=== PATIENT | male | born 1970 | race Hispanic/Latino ===

== ENCOUNTER 2017-12-23 17:23 | Inpatient (IN) | payer OTHER ==
[~2017-12-23] VITALS: Ht 157.5 cm; Wt 75.0 kg
--- NOTE | 2017-12-23 17:25 | NUR ---
PT IMMEDIATELY TO TX ROOM VIA WC. REPORTS HE GOT DIZZY AND FELL WHILE OPERATING A FORKLIFT, FELL OFF THE FORKLIFT ONTO THE GROUND. PT STATES HE HIT HIS HEAD AND THE FORKLIFT, STILL IN MOTION, RAN OVER HIS LEFT UPPER LEG ABOUT MID THIGH. PT DENIES LOC, N/V. PT AWAKE, ALERT AND CONVERSING, ABLE TO ANSWER QUESTIONS. PERRHOLLY. PT STATES HE IS SUPPOSED TO BE TAKING HIS DIABETIC AND HYPTERTENSIVE MEDS AND HAS NOT HAD THEM IN OVER 3 MONTHS.
--- NOTE | 2017-12-23 17:46 | NUR ---
PATIENT REPORTS BEING
--- NOTE | 2017-12-23 18:00 | NUR ---
PATIENT HAS ABRAION TO LEFT UPPER THIGH, REPORTS BEING RUN OVER BY [email or web address] PRIOR TO ARRIVAL. RATES PAIN 9/10, DENIES ANY CHEST OR ABD PAIN. LUNG SOUNDS CLEAR, ACTIVE BOWEL SOUND. PATIENT IS ALERT AND ORIENTED X4. DAYANA PIZANO INFORMED ABOUT PATIENT REQUEST TO PAIN MEDICATIONS. PATIENT TO CT.
[2017-12-23 18:09] LABS: HEMATOCRIT 47.4 % (39.0-50.0); HEMOGLOBIN 16.8 g/dl (14.0-18.0); IMMATURE GRANULOCYTES 1.2 % (0.0-5.0); MEAN CELL VOLUME 82.9 fL CALC (80.0-100.0); MEAN CORPUSCULAR HGB 29.4 pG CALC (26.0-32.0); MEAN CORPUSCULAR HGB CONC 35.4 g/L CALC (32.0-36.0); NEUT# 12.09 thou/uL (1.82-7.42); RED BLOOD COUNT 5.72 mill/uL (4.70-6.10); RED CELL DISTRI WIDTH 12.2 % (11.5-15.5)
[2017-12-23 18:10] LABS: ALKALINE PHOSPHATASE 135 u/l (38-126); BILIRUBIN, TOTAL 0.6 mg/dL (0.0-1.4); BUN 23 mg/dL (9-20); BUN/CREATININE RATIO 8 (12-20 (CALC)); CARBON DIOXIDE 19 mmol/l (22-30); CPK 252 u/l (52-200); CREATININE 2.9 mg/dL (0.7-1.3); GFR 23 ML/MIN (>=60 (CALC)); GFR FOR AFR.AMER. 28 ML/MIN (>=60 (CALC)); LIPASE 209 u/l (23-300); POTASSIUM 4.6 mmol/l (3.5-5.1); SGOT/AST 28 u/l (17-59); SGPT/ALT 40 u/l (21-72); SODIUM 128 mmol/l (137-146); TOTAL PROTEIN 8.5 g/dL (6.3-8.2)
[2017-12-23 18:11] LABS: ANION GAP 29 (6-22 (CALC)); CHLORIDE 85 mmol/l (95-108)
[2017-12-23 18:32] LABS: MYOGLOBIN 715 ng/mL (0 - 121)
--- NOTE | 2017-12-23 18:41 | NUR ---
BEDSIDE REPORT GIVEN TO JACQUELINE MATTHEWS. PATIENT IN STABLE CONDITION. CARE RELINQUISHED.
--- NOTE | 2017-12-23 18:45 | NUR ---
RECEIVED REPORT FROM JACQUELINE RAMESH AND WE BOTH ASKED IF INSULIN ORDER WAS TO BE PLACED SINCE PT'S GLUCOSE IS OVER 600.
--- NOTE | 2017-12-23 19:19 | NUR ---
REPEAT ACCUCHECK 445
--- NOTE | 2017-12-23 20:29 | NUR ---
RECHECKED ACCUCHECK 406 INSULIN DRIP STARTED.
--- NOTE | 2017-12-23 21:07 | NUR ---
REPORT GIVEN TO JACQUELINE WINTERS ICU..SPOKE WITH DR WESTBROOK ABOUT FRACTURE AND PAIN MEDICATION IF NEEDED, ORDERS PLACED. LAB IN TO DRAW REPEAT LACTIC ACID.
--- NOTE | 2017-12-23 21:17 | NUR ---
Admission Note Report Given to: JACQUELINE WINTERS Transported by: Wheelchair X Stretcher Transported with: X Nurse Transporter X Patent IV X O2 X Pump Erector
--- NOTE | 2017-12-23 21:30 | NUR ---
PT. ARRIVES VIA STRETCHER FROM ER. KNEE IMMOBILIZER IN PLACE TO LT. LEG. PT. MOVED HIMSELF FROM ER STRETCHER OVER TO ICU BED WITH ONL YTHE ASSISTANCE OF HELPING MOVE EFFECTED LEG. GOOD DISTIL CAP REFILL AND PULSES NOTED TO LT. FOOT. DORSALIS PEDAL PULSE MARKED WITH AN X AT THIS TIME. PT. C/O 7/10 PAIN ON ARRIVAL TO ICU. INSULIN DRIP INFUSING AT 4 UNITS/HR. IV FLUIDS ARE 500 BAG AT KVO. INCREASED TO 125 CC/HR PER FLUID ORDERS. WILL USE FLUID ORDERS BACKUP FOR INSULIN DRIP. WADNER RT AT BEDSIDE TO INTERPRET AT THIS TIME PT. IS KYRGYZ SPEAKING ONLY. PT. STATES HIS ONLY LOCATION OF PAIN IS THE LT. KNEE/THIGH AREA. ABRASION NOTED TO DISTIL LT. THIGH LATERALLY. NO SWELLING APPRECIATED. LT. CALF APPEARS NORMAL IN SIZE IN COMPARISON TO THE RT. PT. DENIES CP, SOB, DIZZINESS OR LIGHTHEADEDNESS. SINUS RHYTHM IN THE 90'S ON ARRIVAL. PT. DOES COMPLAIN OF SOME MILD LT. CALF PAIN ON PALPATION. WILL CONTINUE TO CLOSELY ASSESS FOR SWELLING. AWAKE, ALERT, ORIENTED X 3. BONILLA. W[place]. NO NEURO DEFICITS NOTED. LUNGS CTA. SKIN WARM AN DRY. AFEBRILE. RESPS EVEN AND UNLABORED. PROVIDED WITH URINAL AND CALL MACKENZIE AND PROVIDED WITH INSTRUCTIONS ON USE FOR EACH. PT. HAS NO QUESTIONS OR CONCERNS AT THIS TIME. WILL MEDICATE FOR PAIN ORDERED.-
[2017-12-23 22:00] VITALS: BP 133/85
--- NOTE | 2017-12-23 22:03 | NUR ---
ACCUCHECK NOW 349. DRIP CONTINUES AT 4 UNITS/HR.
[2017-12-23 22:15] VITALS: BP 137/79
[2017-12-23 22:30] VITALS: BP 107/69
[2017-12-23 22:45] VITALS: BP 159/99
[2017-12-23 23:00] VITALS: BP 157/95
--- NOTE | 2017-12-23 23:02 | NUR ---
PT. AND FAMILY UPDATED ON PT. STATUS. ALL QUESTIONS ANSWERED AT THIS TIME. IF FLUIDS AND INSULIN INFUSING ORDERED. ACCUCHECK NOW 287. DRIP DECREASED TO 3 UNITS/HR. PT. STATES HIS PAIN HAS IMPROVED AT THIS TIME. RATES 5/10. WILL CONTINUE TO MONITOR.
[2017-12-24] VITALS (21 sets, daily range): BP systolic 90–146; BP diastolic 50–98
--- NOTE | 2017-12-24 00:05 | NUR ---
ACCUCHECK NOW 327. INSULIN DRIP INCREASED BACK TO 4 UNITS/HR.
[2017-12-24 00:59] LABS: CREATININE 1.7 mg/dL (0.7-1.3); POTASSIUM 3.5 mmol/l (3.5-5.1)
--- NOTE | 2017-12-24 01:05 | NUR ---
ACCUCHECK NOW 240. INSULIN DRIP DECREASED TO 3 UNITS/HR.
--- NOTE | 2017-12-24 02:24 | NUR ---
ACCUCHECK NOW 228. INSULIN DRIP CONTINUES AT 3 UNITS/HR. IV FLUIDS CONTINUE TO INFUSE AT 125 CC/HR. NO DISTRESS.
--- NOTE | 2017-12-24 03:05 | NUR ---
ACCUCHECK NOW 211. NO CHANGES TO INSULIN DRIP AT THIS TIME. REMAINS AT 3 UNITS/HR PT. REMAINS EASILY AROUSABLE. NO DISTRESS. CALL LIGHT REMAINS WITHIN REACH. WILL CONTINUE TO CLOSELY MONITOR.
--- NOTE | 2017-12-24 04:03 | NUR ---
PT. ASSISTED TO BSC. BM AT THIS TIME. PT. RATES HIS PAIN A 1/10 AT THIS TIME. ACCUCHECK NOW 138. INSULIN DRIP DECREASED TO 1 UNIT/HR. WILL CONTINUE TO CLOSELY MONITOR.
--- NOTE | 2017-12-24 05:05 | NUR ---
ACCUCHEBENEZER NOW 151. NO CHANGES TO INSULIN DRIP.
--- NOTE | 2017-12-24 06:23 | NUR ---
LAB AT BEDSIDE AT THIS TIME TO DRAW PT. PT. REPORTS NO PAIN AT THIS TIME. CALL LIGHT REMAINS WITHIN REACH. SIG OTHER REMAINS AT BEDSIDE AT THIS TIME. NO DISTRESS. DISTIL PULSES REMAIN INTACT.
[2017-12-24 06:29] LABS: IMMATURE GRANULOCYTES 0.8 % (0.0-5.0); MEAN CELL VOLUME 84.1 fL CALC (80.0-100.0); MEAN CORPUSCULAR HGB 29.7 pG CALC (26.0-32.0); MEAN CORPUSCULAR HGB CONC 35.3 g/L CALC (32.0-36.0); NEUT# 7.41 thou/uL (1.82-7.42); RED BLOOD COUNT 4.78 mill/uL (4.70-6.10); RED CELL DISTRI WIDTH 12.3 % (11.5-15.5)
[2017-12-24 06:30] LABS: HEMATOCRIT 40.2 % (39.0-50.0); HEMOGLOBIN 14.2 g/dl (14.0-18.0)
[2017-12-24 06:45] LABS: ALKALINE PHOSPHATASE 82 u/l (38-126); ANION GAP 12 (6-22 (CALC)); BILIRUBIN, TOTAL 0.5 mg/dL (0.0-1.4); BUN 21 mg/dL (9-20); BUN/CREATININE RATIO 16 (12-20 (CALC)); CARBON DIOXIDE 28 mmol/l (22-30); CHLORIDE 102 mmol/l (95-108); CREATININE 1.3 mg/dL (0.7-1.3); GFR 59 ML/MIN (>=60 (CALC)); GFR FOR AFR.AMER. > 60 ML/MIN (>=60 (CALC)); MAGNESIUM 2.1 mg/dL (1.6-2.3); POTASSIUM 3.5 mmol/l (3.5-5.1); SGOT/AST 23 u/l (17-59); SGPT/ALT 30 u/l (21-72); SODIUM 138 mmol/l (137-146)
[2017-12-24 06:46] LABS: ALBUMIN 3.3 g/dL (3.2-5.0)
--- NOTE | 2017-12-24 07:13 | NUR ---
REPORT RECVD FROM JACQUELINE FORTUNE AT START OF SHIFT. PT SLEEPING IN BED, SLEEPING IN CHAIR. PEDAL & RADIAL PULSES STRONG. LEFT LEG IN KNEE IMMOBILIZER. WOUND ACROSS LEFT THIGH. NO EDEMA TO LEG. PT A&Ox4. PT EASILY AROUSED. ABD SOFT/NONTENDER. DENIES N/V. ACTIVE BS. NO NEURO ABNORMALITY. FULL ROM TO ALL EXTREMETIES. DENIES PAIN.
--- NOTE | 2017-12-24 08:31 | NUR ---
DR GOODEN @BEDSIDE WITH PT, ANSWERING QUESTIONS AND DISCUSSING POC & TEST RESULTS IN [facility]. @BEDSIDE. IVF & IV INSULIN STOPPED, MD WILL TRY PT ON PO MEDS W/POSS DC TOMORROW. PT STATES HE DOES NOT HAVE A PCP AND NO MONEY FOR HOME MEDS. LIVES IN [place]. STATES HE TOOK HIS MEDS FOR 3 MONTHS AFTER LAST HOSPITALIZATION IN [place] THEN STOPPED. MD INFORMED PT/ IT WAS VERY IMPORTANT TO F/UP WITH PCP FOR MED REFILLS & CARE AFTER DC FROM HOSPITAL. VERBALIZED UNDERSTANDING.
--- NOTE | 2017-12-24 09:45 | NUR ---
PT SLEEPING IN BED, UP IN RECLINER. NO S/S OF DISTRESS AT THIS TIME.
[2017-12-24 10:14] LABS: URINE BILIRUBIN - DIPSTICK NEGATIVE (NEGATIVE); URINE BLOOD DIPSTICK SMALL (NEGATIVE); URINE COLOR YELLOW; URINE GLUCOSE - DIPSTICK >=1000 mg/dL (NEGATIVE); URINE KETONE NEGATIVE (NEGATIVE); URINE LEUK ESTERASE NEGATIVE (NEGATIVE); URINE NITRITE - DIPSTICK NEGATIVE (Negative); URINE PH 5.5 (4.5-8.0); URINE PROTEIN - DIPSTICK 30 mg/dL (NEG-TRACE); URINE SPECIFIC GRAVITY 1.015; URINE UROBILINOGEN - DIPSTICK 0.2 E.U./dL (0.2)
[2017-12-24 10:15] LABS: URINE CLARITY SL CLOUDY
[2017-12-24 10:16] LABS: URINE EPITHELIAL CELLS FEW EPI/hpf (0-FEW); URINE MUCUS MODERATE hpf (NONE-FEW); URINE RBC 0-2 RBC/hpf (0-5)
--- NOTE | 2017-12-24 10:57 | NUR ---
PT DENIED BATH TODAY.
--- NOTE | 2017-12-24 12:19 | NUR ---
PT SLEEPING IN BED, UP IN RECLINER. NO NEW NEEDS/CONCERNS AT THIS TIME.
--- NOTE | 2017-12-24 13:46 | NUR ---
PT DENIES PAIN TO BILATERAL LOWER LEGS, MILD EDEMA TO LEFT MEDIAL THIGH/KNEE AREA. NO DISCOLORATION. SMALL PINK AREA TO THIGH REDUCING IN SIZE & COLOR. STRONG PEDAL PULSES, GOOD PEDAL CAP REFILL. ABLE TO MOVE BOTH LEGS & FEET. SKIN WARM/DRY. KNEE IMMOBILIZER REATTACHED.
--- NOTE | 2017-12-24 15:06 | NUR ---
CASE MANAGEMENT IN ROOM WITH PT/ & JEWELRY MECHANIC.
--- NOTE | 2017-12-24 15:15 | NUR ---
SHARED CONCERNS WITH TESS, CASE MANAGEMENT, THAT PT/ HAD EARLIER ABOUT NOT HAVING MONEY FOR MEDICATIONS & DR VISITS.
--- NOTE | 2017-12-24 16:12 | NUR ---
PT LAYING IN BED, WATCHING TV. IN RECLINER. DENIES PAIN AT THIS TIME. WILL CONTINUE TO MONITOR. CALLBELL W/IN REACH
--- NOTE | 2017-12-24 17:13 | NUR ---
PT C/O MILD PAIN TO LEFT LEG.
--- NOTE | 2017-12-24 17:54 | NUR ---
PT SITTING UP EATING DINNER. ORDERED A GUEST TRAY.
--- NOTE | 2017-12-24 19:35 | NUR ---
PT. FOUND AWAKE, ALERT, ORIENTED X 3. RESPS EVEN AND UNLABORED. PT. STATES WITH MILD PAIN TO LT. KNEE/DISTIL THIGH AREA AT THIS TIME. BP/HR STABLE. SPOUSE AT BEDSIDE AT THIS TIME. DISTIL PULSES REMAIN INTACT. NO SWELLING NOTED TO SITE OF HAVING BEEN RUN OVER BY [employer] REMAINS WITH SCANT ABRASION. LIGHTS DIMMED FOR COMFORT. DENIES OTHER COMPLAINTS OR NEEDS. LUNGS CTA. BOWEL SOUNDS PRESENT IN 4 QUADS.
--- NOTE | 2017-12-24 20:08 | NUR ---
REPORT FROM Phong ZAVALA RN. ASSUMED PT. CARE.
--- NOTE | 2017-12-24 20:45 | NUR ---
ACCUCHECK NOW 303. MADE AWARE, NEW ORDERS RECEIVED. DENIES COMPLAINTS OF PAIN OR NEED. WILL CONTINUE TO MONITOR.
--- NOTE | 2017-12-24 22:45 | NUR ---
PT. RESTING IN BED IN NO DISTRESS. SIG OTHER REMAINS AT BEDSIDE AT THIS TIME. CALL LIGHT REMAINS WITHIN REACH. WATCHING TELEVISION.
[2017-12-25] VITALS (8 sets, daily range): BP systolic 106–151; BP diastolic 74–95
--- NOTE | 2017-12-25 00:30 | NUR ---
PT. RESTING IN BED WITH EYES CLOSED. BP/HR STABLE. SIG OTHER REMAINS AT BEDSIDE AT THIS TIME. CALL LIGHT REMAINS WITHIN REACH. RESPS REMAIN EVEN AND UNLABORED.
--- NOTE | 2017-12-25 02:12 | NUR ---
VSS. SPOUSE REMAINS AT BEDSIDE AT THIS TIME. PT. REMAINS IN NO DISTRESS. REMAINS SINUS IN THE 70'S.
--- NOTE | 2017-12-25 03:24 | NUR ---
PT. CONTINUES TO REST WITH EYES CLOSED AND INTERMITTENT SNORING RESPIRATIONS. PT. REMAINS IN SINUS RHYTHM WITH VITALS STABLE.
--- NOTE | 2017-12-25 04:50 | NUR ---
T. WITH MODERATE FORMED BM. C/O MODERATE PAIN TO LT. LEG. MEDICATED PER PHYSICIAN ORDERS. CALL LIGHT PLACED BACK WITHIN REACH. WILL CONTINUE TO ASSESS.
--- NOTE | 2017-12-25 06:32 | NUR ---
PT. RESTING IN BED WITH EYES CLOSED. KNEE IMMOBILIZER REMAINS IN PLACE. PT. REMAINS IN NO DISTRESS. HR REMAINS SINUS IN THE 80'S. BP STABLE. CALL LIGHT REMAINS WITHIN REACH. WILL CONTINUE TO ASSESS.
--- NOTE | 2017-12-25 07:00 | NUR ---
RECVD REPORT FROM JACQUELINE WINTERS. PT AWAKE, WATCHING TV. NO S/S OF DISTRESS.
--- NOTE | 2017-12-25 08:15 | NUR ---
PT LAYING IN BED. SWELLINGTO LEFT MEDIAL KNEE/THIGH AREA APPROX SAME YESTERDAY. ORIGINAL ABRASION TO UPPER LEFT THIGH BARELY VISIBLE. KNEE IMMOBILIZER IN PLACE. PT DENIES PAIN ANYWHERE. DENIES SOB. DENIES N/V/S. VS STABLE. BONILLA. GOOD PEDAL & RADIAL PULSES, GOOD CAP REFILL. BREATHING EVEN/UNLABORED. NO COMPLAINTS/NEEDS AT THIS TIME. CALLBELL W/IN REACH. WILL CONTINUE TO MONITOR.
--- NOTE | 2017-12-25 09:56 | NUR ---
PT LAYING IN BED, WATCHING TV. IN RECLINER. DENIES PAIN.
--- NOTE | 2017-12-25 11:11 | NUR ---
DR GOODEN & DAYANA PERERA @BEDSIDE WITH PT/; ASSESSING PT, DISCUSSING TEST RESULTS & POC.
[2017-12-25] MEDS ORDERED: CARVEDILOL6.25 MG PO (11:31)
[2017-12-25] MEDS ORDERED: AMARYL2 MG PO (11:32)
[2017-12-25] MEDS ORDERED: GLUCOPHAGE500 MG PO (11:32)
--- NOTE | 2017-12-25 11:32 | NUR ---
PT SITTING UP IN BED, LUNCH TRAY GIVEN TO PT & .
[2017-12-25] MEDS ORDERED: SIMVASTATIN20 MG PO (11:37)
--- NOTE | 2017-12-25 11:40 | NUR ---
CASE MANAGEMENT NOTIFED OF PTS PENDING DC. TESS IS WORKING ON GETTING RX FOR PT AT AN HORNER AFFORDABLE FOR PT.
--- NOTE | 2017-12-25 12:32 | NUR ---
CM IS "DILIGENTLY WORKING ON PTS RX WITH [facility]".
--- NOTE | 2017-12-25 13:21 | NUR ---
ANIRUDH FROM [facility] @BEDSIDE TO TRANSLATE FOR CM & MYSELF. ANSWERED QUESTIONS RE: DC. PT/ VERBALIZE UNDERSTANDING FOR F/UP CARE & IMPORTANCE OF MED COMPLIANCE. CALLING FOR FRIEND TO PICK HIM UP.
--- NOTE | 2017-12-25 13:35 | NUR ---
REQUESTED CRUTCHES FROM [facility] [facility]. PT GIVEN NEW ICE WATER. GETTING DRESSED IN ROOM.
--- NOTE | 2017-12-25 13:49 | NUR ---
PT EDUCATED ON CRUTCH WALKING. ADVISED TO KEEP KNEE IMMOBILIZER ON AT ALL TIMES UNTIL HE SEES ORTHO AND TO USE CRUTCHES TO WALK, W/OUT PUTTING WEIGHT ON LEFT LEG. PT DEMONSTRATED CRUTCH WALKING. PT DC FROM ICU BY WC IN STABLE CONDITION AFTER ALL QUESTIONS ANSWERED.
== END 2017-12-25 13:49 | disposition home or self-care (01) | DRG 639 ==
LOC: ED 17:23 → ED-I 19:20 → ED 20:20 → ICU 20:21
PROVIDERS: ADMIT Internal Medicine Nephrology; ATTEND Internal Medicine Nephrology
DX: E11.00 Type 2 diabetes mellitus with hyperosmolarity without nonketotic hyperglycemic-hyperosmolar coma (NKHHC) (principal); S82.832A Other fracture of upper and lower end of left fibula, initial encounter for closed fracture; I10 Essential (primary) hypertension; E78.5 Hyperlipidemia, unspecified; V83.5XXA Driver of special industrial vehicle injured in nontraffic accident, initial encounter; Y93.89 Activity, other specified; Y92.73 Farm field as the place of occurrence of the external cause; Y99.0 Civilian activity done for income or pay; Z91.14 Patient's other noncompliance with medication regimen
CPT/HCPCS: J1650; L1830